=== PATIENT | female | born 1975 | race African-American/Black ===

== ENCOUNTER 2020-09-11 17:55 | Emergency (ER) | payer BC, OTHER ==
[~2020-09-11] VITALS: Ht 165.1 cm; Wt 99.8 kg
[2020-09-11 18:00] VITALS: BP 143/79
[2020-09-11] MEDS ORDERED: PROAIR HFA8.5 GM INH (20:51)
[2020-09-11] MEDS ORDERED: TRIAMTERENE/HCT1 CA1 PO (20:51)
[2020-09-11] MEDS ORDERED: SYMBICORT160 MCG/4. INH (20:52)
[2020-09-11] MEDS ORDERED: AMOXICILLIN875 MG PO (20:55)
[2020-09-11] MEDS ORDERED: NAPROSYN500 MG PO (20:55)
[2020-09-11] MEDS ORDERED: TRAMADOL 50 MG50 MG PO (20:55)
== END 2020-09-11 21:05 | disposition home or self-care (01) ==
LOC: ER 17:55
DX: K08.89 Other specified disorders of teeth and supporting structures (principal); H92.01 Otalgia, right ear; Z79.899 Other long term (current) drug therapy